=== PATIENT | male | born 2005 | race Caucasian/White ===

== ENCOUNTER 2023-06-15 11:41 | Emergency (ER) | payer OTHER, SELFPAY ==
[2023-06-15 11:49] VITALS: BP 131/89; PULSE 80; RESP 18; TEMP 36.6; O2SAT 99; BMI 25.1
--- NOTE | 2023-06-15 11:52 | ED_ITS ---
HPI - General Adult General Chief complaint: Head Injury Stated complaint: concussion ? 5/6 Time Seen by Provider: 06/15/23 11:54 Source: patient Mode of arrival: ambulatory Limitations: no limitations History of Present Illness HPI narrative: Patient is a 18 year old assigned male at with no reported medical history presenting to the emergency department today with headache. Patient states that earlier today he was walking on the street and accidentally walked into a pole. Patient states that he is dizzy but denies any loss of consciousness. Patient denies any lightheadedness, abdominal pain, nausea, vomiting, fever, chills, blurry vision, double vision, loss of vision, chest pain, difficulty breathing, shortness of breath, back pain, night sweats, pain with urination, increased urinary frequency, increased urinary urgency, blood in her urine or stool, syncope or a near syncopal episode, bowel incontinence, bladder incontinence, bowel retention, bladder retention, or any other complaints at this time. Onset (ago): minute(s) Location: head Radiation: non-radiation Severity: mild Severity scale (1-10): 3 Relieving factors: none Exacerbating factors: none Associated symptoms: denies other symptoms Treatments prior to arrival: none Related Data Allergies Allergy/AdvReac Type Severity Reaction Status Date / Time No Known Allergies Allergy Verified 06/15/23 11:53 Review of Systems 2 Constitutional: Constitutional: Reports no additional constitutional complaints, Denies chills, Denies fever(s), Reports headache(s) and Denies night sweats Eyes: Eyes: Reports no additional eye complaints, Denies blurry vision, Denies change in vision, Denies diplopia, Denies eye discharge, Denies loss of vision and Denies eye pain ENT: Reports dizziness and Reports headache(s) Cardiovascular: Cardiovascular: Reports no additional cardiovascular complaints, Denies chest pain, Denies lightheadedness, Denies Loss of Consciousness and Denies dyspnea Respiratory: Respiratory: Reports no additional respiratory complaints and Denies dyspnea Gastrointestinal: Gastrointestinal: Reports no additional gastrointestinal complaints, Denies abdominal pain, Denies melena, Denies hematochezia, Denies change in bowel habits and Denies change in stool character Genitourinary: Genitourinary: Reports no additional male genitourinary complaints, Denies hematuria, Denies oliguria, Denies difficulty urinating, Denies dysuria, Denies urinary frequency, Denies urinary hesitancy, Denies urinary incontinence and Denies urinary urgency Musculoskeletal: Musculoskeletal: Reports no additional musculoskeletal complaints, Denies numbness and Denies tingling Neurologic: Reports dizziness, Reports headache(s), Denies loss of vision, Denies numbness and Denies tingling Psychiatric: Psychiatric: Reports no additional psychiatric complaints Endocrine: Endocrine: Reports no additional endocrine complaints Hematologic/Lymphatic: Hematologic/Lymphatic: Reports no additional hematologic/lymphatic complaints Allergic/Immunologic: Allergic/Immunologic: Reports no additional allergic/immunologic complaints PMFSH Past Medical History Attestation statement: The following information was validated with the patient. Source: old records reviewed and nursing notes reviewed Social History Social History Advance Directives: No Advance Directives Information Provided: No Do you have a plan to hurt others: No Plan Physical Exam ED Vital Signs: Vital Signs - 24 hr 06/15/23 11:49 Temperature 97.9 F Pulse Rate 80 Respiratory Rate 18 Blood Pressure 131/89 Pulse Oximetry 99 Oxygen Delivery Method Room Air BMI result Body Mass Index 25.1 Const General: cooperative, no acute distress, alert and awake Nutritional Appearance: well nourished Orientation/consciousness: patient oriented x3 Limitations: no limitations [facility] Head images: 2 1. small erythematous area consistent with a contusion Ears: hearing grossly normal bilaterally and external ears normal General nose exam: Normal external nose present, no nasal discharge noted and no epistaxis Face and sinus: No abrasion and No laceration Mouth: Normal oral and palatal mucosa present, no drooling and no muffled voice Eyes General: appearance normal, both eyes and all related structures Periorbital: periorbital findings normal Eyelids: Yes eyelids normal Conjunctivae: conjunctivae normal Pupils: Equal, round and reactive pupils present EOM: EOMs intact bilaterally Neck Neck: Yes normal visual inspection, Yes full ROM and Yes no lymphadenopathy Chest Chest palpation & inspection: normal inspection of the chest Resp Effort & Inspection: normal respiratory effort and able to speak in complete sentences GI Inspection: Yes normal to inspection Neuro General: patient oriented x3 and moves all extremities Cranial nerves: Yes Equal, round and reactive pupils present Cognition (Neuro): normal cognition Motor exam (neuro): 5/5 motor strength present throughout Sensory Exam: Normal double simultaneous stimulation for sensation Coordination: [id number] test normal Extrem General: Yes normal to inspection, Yes full ROM and Yes capillary refill normal Psych Appearance: grossly normal Mental Status: mental status grossly normal Affect: normal affect Attitude: cooperative Thought process: Normal thought process present Thought content: Normal thought content present Insight: Good insight present (Psych) Medical Decision Making Medical Decision Making MDM Narrative: Patient is a 18 year old assigned male at with no reported medical history presenting to the emergency department today with dizziness and a headache after hitting his head on a pole. Patient's physical exam was as noted in the physical exam portion of this note. Patient has no focal deficits. I explained my physical exam findings to the patient. I answered all questions asked by the patient. I stressed the importance of the patient taking his medication as prescribed. I stressed the importance of the patient following up with his primary care provider. I stressed the importance of the patient returning to the emergency department immediately if his symptoms were to worsen or if he were to develop any dizziness, shortness of breath, difficulty breathing, chest pain, blurry vision, loss of vision, nausea, vomiting, abdominal pain, fever, chills, back pain, or any other complaints. Patient verbalized agreement and understanding with this treatment plan and discharge. Differential Diagnosis Differential Diagnoses: The differential diagnosis associated with the presentation includes Concussion Head injury Contusion Admission/Observation Consideration of admission/observation: Escalation of care including admission/observation considered Patient would have been admitted to the hospital had his clinical presentation warranted hospital admission. Tests considered The following testing was considered but not selected: I considered a CT scan of the head and c-spine however, given the patient's current clinical presentation and mechanism of injury, it is not warranted at this time. I discussed this with the patient who verbalized understanding and agreement. Discharge Plan Discharge Clinical Impression: Concussion Patient Disposition: Home, Self-Care Instructions: Concussion (ED) Additional Instructions: Follow up with your primary care provider. Return to the emergency department immediately if your symptoms worsen or if you develop any dizziness, shortness of breath, difficulty breathing, chest pain, blurry vision, loss of vision, nausea, vomiting, abdominal pain, fever, chills, back pain, or any other complaints. Referrals: [facility] [place] Family Medicine [Provider Group] (Call to establish and follow up with a primary care provider. If you already have a primary care provider, please follow up with them.) [facility] [place] Primary Cyndi Bañuelos [Provider Group] [facility] [Provider Group] Stand Alone Forms: Work/School Release Discharge Date/Time: 06/15/23 12:03 Print Language: Faroese
== END 2023-06-15 12:03 | disposition home or self-care (01) ==
PROVIDERS: Emergency Provider Emergency Medicine
DX: S06.0X0A Concussion without loss of consciousness, initial encounter (principal); W22.09XA Striking against other stationary object, initial encounter; Y93.89 Activity, other specified; Y92.89 Other specified places as the place of occurrence of the external cause; Y99.9 Unspecified external cause status; R42 Dizziness and giddiness; R51.9 Headache, unspecified
CPT/HCPCS: 99281

== ENCOUNTER 2023-10-14 11:04 | Emergency (ER) | payer OTHER, SELFPAY ==
--- NOTE | ~2023-10-14 | XR_ITS ---
EXAMINATION: XR ankle RT min 3V (accession [id number]) XR foot RT min 3V (accession [id number]) CLINICAL INFORMATION: pain, Pt states tendonitis bothering him x 1 week. COMPARISON: None. TECHNIQUE: AP, lateral and obliques of the right ankle, 3 images. AP and oblique views are difficult images. FINDINGS: Right ankle: Alignment is anatomic. Ankle mortise is symmetric. No evidence of acute fracture. No significant focal soft tissue swelling or joint effusion. Right foot: Alignment is anatomic. No evidence of acute fracture. No erosions. No significant focal soft tissue swelling. No radiopaque foreign body. XR/XR ankle RT min 3V IMPRESSION: No acute fracture or dislocation involving the right ankle or right foot. Electronically signed by: Tsering Ruggiero DO 10/14/2023 01:35 PM EDT
--- NOTE | ~2023-10-14 | XR_ITS ---
EXAMINATION: XR ankle RT min 3V (accession [id number]) XR foot RT min 3V (accession [id number]) CLINICAL INFORMATION: pain, Pt states tendonitis bothering him x 1 week. COMPARISON: None. TECHNIQUE: AP, lateral and obliques of the right ankle, 3 images. AP and oblique views are difficult images. FINDINGS: Right ankle: Alignment is anatomic. Ankle mortise is symmetric. No evidence of acute fracture. No significant focal soft tissue swelling or joint effusion. Right foot: Alignment is anatomic. No evidence of acute fracture. No erosions. No significant focal soft tissue swelling. No radiopaque foreign body. XR/XR foot RT min 3V IMPRESSION: No acute fracture or dislocation involving the right ankle or right foot. Electronically signed by: Tsering Ruggiero DO 10/14/2023 01:35 PM EDT
--- NOTE | 2023-10-14 11:22 | ED_ITS ---
HPI - Extremity Injury (Lower) General Chief Complaint: Extremity Problem Stated Complaint: r foot pain Time Seen by Provider: 10/14/23 12:46 Source: patient Mode of arrival: ambulatory Limitations: no limitations History of Present Illness ED Provider: maxine EDEN Narrative: Patient is a 18-year-old male presenting to the emergency department with complaint of right midfoot pain for the past week. Denies injury or other trauma. Has been using an Jean wrap with mild relief. Denies any weakness, numbness, tingling. States he is wearing either work boots or sneakers without arch support. Other symptoms: none Treatments prior to arrival: bandage Related Data Allergies Allergy/AdvReac Type Severity Reaction Status Date / Time No Known Allergies Allergy Verified 10/14/23 11:26 Review of Systems Review of Systems: As per HPI. Yes all other systems are reviewed and are negative Constitutional: Constitutional: Reports as per HPI [facility] Social History Social History Advance Directives: No Do you have a plan to hurt others: No Plan Physical Exam Vital Signs: Vital Signs: Last Vital Signs Temp 98.4 F 10/14/23 13:45 Pulse 60 10/14/23 13:45 Resp 16 10/14/23 13:45 BP 127/81 10/14/23 13:45 Pulse Ox 98 10/14/23 13:45 O2 Del Method Room Air 10/14/23 13:45 BMI result Body Mass Index 23.9 Vital signs have been reviewed and appear to be correct. Blood pressure normal. Heart rate normal. Respiratory rate normal. Temperature normal. Oxygen saturation normal. Const: General: cooperative, healthy appearing and no acute distress Orientation/consciousness: oriented to person, oriented to place, oriented to time and patient oriented x3 Limitations: no limitations HEENT: Head: Yes normocephalic and Yes atraumatic Ears: external ears normal General nose exam: Normal external nose present Face and sinus: Yes face symmetric Mouth: oropharynx normal and moist mucous membranes Throat: Yes uvula midline Eyes: Pupils: Equal, round and reactive pupils present Neck: Neck: Yes normal visual inspection and Yes supple Resp: Effort & Inspection: normal respiratory effort and able to speak in complete sentences Auscultation: clear to auscultation bilaterally Cardio: Rate: regular rate Rhythm: regular rhythm Heart sounds: S1 normal heart sound present and S2 normal heart sound present GI: Palpation (GI): Soft to palpation and nontender Auscultation: normoactive bowel sounds : General: Yes no CVA tenderness Back/Spine/Pelvis: Back: no CVA tenderness Skin: General skin exam: elasticity normal and turgor normal Neuro: General: oriented to person, oriented to place, oriented to time, patient oriented x3, moves all extremities, no focal motor deficits and CN's II- XI intact bilaterally Cranial nerves: Yes Equal, round and reactive pupils present Cognition (Neuro): normal cognition Extrem: General: Yes full ROM, Yes no pedal edema and Yes no calf tenderness Right lower extremity: foot Details: normal capillary refill, normal to inspection, tenderness Location: of the medial foot Location: in the mid- section, toes with normal ROM, no edema and vascular exam Details: dorsalis pedis pulse present, posterior tibial pulse present and normal capillary refill; no unusual warmth and no ecchymosis Psych: Mental Status: mental status grossly normal Affect: normal affect Thought process: Normal thought process present Course Course Course Narrative: This is an RME: Additional HPI, ROS, PE not included below will be deferred to primary provider. RME assessment and note performed by: Dina Culp PA-C This is a [id number]-male, with no known medical problems, who presents to the ER with complaints of right foot pain for the last few weeks. He is currently at [employer] and works in [employer]. He has been taking ibuprofen for his symptoms which has provided him with minimal relief. He was told that he has tendonitis in his foot, denies having his right foot imaged. Plan: xray right foot/ankle Medical Decision Making Medical Decision Making MDM Narrative: Patient is a 18-year-old male presenting to the emergency department with complaint of right midfoot pain for the past week. On exam patient is awake, A+Ox3, VS WNL, afebrile, normal neurological exam without focal deficits, physical exam findings as above. Given reported symptoms and physical exam findings, initial differential includes muscle strain of foot, plantar fasciitis, metatarsalgia. Less likely fracture. X-ray right foot and ankle notable for no acute fractures. My interpretation is in agreement with the radiologist's interpretation. Results discussed with patient all questions answered. Advised patient to continue using Jean wrap if this is decreasing his symptoms, recommended purchasing [id number] inserts with arch support. Advised patient to apply ice intermittently, Tylenol and ibuprofen as needed. Will refer to ortho for ongoing symptoms. Return precautions discussed at bedside. Patient verbalized understanding of and agreement with plan. Differential Diagnosis Differential Diagnoses: The differential diagnosis associated with the presentation includes As per MDM. Independent Interpretation I performed an independent interpretation of an: Plain X-Ray Interpretation: Right foot and ankle without evidence of acute fracture. Radiology Impression Discussion of test interpretation with radiology: I have reviewed the radiologist's reading. Radiologist Impression: XR/XR foot RT min 3V IMPRESSION: No acute fracture or dislocation involving the right ankle or right foot. External Record Review External record reviewed: Inpatient record, Office record and Outpatient record Discharge Plan Discharge Clinical Impression: Strain of foot, right Patient Disposition: Home, Self-Care Instructions: R.I.C.E. Treatment (ED) Additional Instructions: You were evaluated in the emergency department today for right foot pain. Your x-rays did not show evidence of any fractures. Your pain is likely due to a muscle strain. If you are able, we recommend purchasing [id number] insoles with arch support. We also recommend applying ice for 10-15 minutes at a time several times daily and elevating foot at rest. You can take 600 mg of ibuprofen or 650 mg of Tylenol every 6 hours as needed for pain. If your symptoms persist beyond the next 1-2 weeks, follow-up with orthopedics. Return to the emergency department if you develop increasing pain, new weakness, numbness, tingling, change of color in your for or any other concerning symptoms. Referrals: [facility] [place] Orthopedic Surgeons [Provider Group] Print Language: Barbadian
[2023-10-14 11:23] VITALS: BP 148/118; PULSE 60; RESP 18; TEMP 36.4; O2SAT 97; BMI 23.9
[2023-10-14 13:45] VITALS: BP 127/81; PULSE 60; RESP 16; TEMP 36.9; O2SAT 98
[2023-10-14 14:16] VITALS: BP 127/81; PULSE 60; RESP 18; TEMP 36.9; O2SAT 98
== END 2023-10-14 14:17 | disposition home or self-care (01) ==
PROVIDERS: Emergency Provider Emergency Medicine
DX: S96.911A Strain of unspecified muscle and tendon at ankle and foot level, right foot, initial encounter (principal); X58.XXXA Exposure to other specified factors, initial encounter; Y93.9 Activity, unspecified; Y92.9 Unspecified place or not applicable; Y99.9 Unspecified external cause status; M79.671 Pain in right foot
CPT/HCPCS: 73610; 73630; 99283